=== PATIENT | female | born 1965 | race Caucasian/White ===

== ENCOUNTER 2016-08-19 11:11 | Observation (INO) | payer SELFPAY ==
[2016-08-19 11:39] LABS: Hematocrit 46.1 % (37.0-47.0); Hemoglobin 15.1 gm/dL (12.5-16.0); Mean Cell Volume 87.6 fl (78-100); Mean Corpuscular Hemoglobin 28.7 pg (27-31); Mean Corpuscular Hgb Conc 32.8 g/dl (32-36); Mean Platelet Volume 10.1 fl (6.0-9.5); Neutrophil # 6.8 K/mm3 (1.3-6.0); Neutrophil % 76.6 % (42-75.0); Platelet Count 262 K/mm3 (150-450); Red Blood Count 5.26 M/mm3 (4.2-5.4); Red Cell Distribution Width 13.2 % (11.5-14.0); White Blood Count 8.9 K/mm3 (4.0-10.5)
[2016-08-19 11:55] LABS: Prothrombin Time (Patient) 10.2 Seconds (9.4-11.4)
[2016-08-19 11:56] LABS: INR 0.98 INR (0.90-1.10); Partial Thrombolplastin Time 24.7 Seconds (24-32)
[2016-08-19 12:08] LABS: ALT 27 U/L (19-67); AST 15 U/L (0-48); Albumin * 4.1 gm/dl (3.4-5.0); Alkaline Phosphatase * 118 U/L (50-170); Anion Gap 13.3 mmol/L (6.8-13.8); BUN/Creatinine Ratio 8.8 (9.0-21.6); Bilirubin, Total 1.2 mg/dL (0.0-1.1); Blood Urea Nitrogen 12 mg/dL (3-23); Ca. Corrected For Albumin 8.8 mg/dL (8.4-10.2); Calcium * 9.2 mg/dL (7.9-10.9); Carbon Dioxide 25.6 mmol/L (24-32.6); Chloride 96 mmol/L (97-106); Potassium 3.9 mmol/L (3.4-4.6); Sodium 131 mmol/L (132-142); Total Protein 8.5 gm/dL (6.2-8.2); Troponin I Less than 0.017 ng/ml (0.00-0.10)
[2016-08-19 12:15] LABS: Glucose * 656 mg/dL (70-110)
[2016-08-19] MEDS ORDERED: NORMAL SALINE 1,000 ML IV ONE (12:19)
[2016-08-19 12:25] LABS: Urine Bilirubin Negative (NEGATIVE); Urine Blood 50 /ul (NEGATIVE); Urine Ketone Negative (NEGATIVE); Urine Nitrite Negative (NEGATIVE); Urine Protein Negative (NEGATIVE); Urine Urobilinogen Normal (NORMAL)
--- NOTE | 2016-08-19 12:32 | ERNOTE ---
Chest Pain/Cardiac HPI Date of Service: 08/19/16 Chief Complaint: Chest Pain Time Seen by Provider: 08/19/16 12:20 Source: patient Exam Limitations: no limitations Immunizations: IMMUNIZATION HX History of Influenza Vaccine No Hx Pneumococcal Vaccination No Allergies/Adverse Reactions: Allergies acetaminophen [From Vicodin] Allergy (Verified 08/19/16 11:27) hydrocodone bitartrate [From Vicodin] Allergy (Verified 08/19/16 11:27) oxycodone HCl [From Percocet] Allergy (Verified 08/19/16 11:27) Home Medications: HOME MEDICATIONS NK [No Home Medication] 08/19/16 [Last Taken Unknown] Narrative: The patient presents with chest pain that started at work at 9:30 in the morning. Roughly 3 hours ago the pain stayed in the middle of her chest for at least 2 hours. Describes it more as a tightness no radiation of pain worse with deep inspiration and she had a hard time catching her breath. Denied any diaphoresis or sweating denies being short of breath. Presently her pain is 0/10 chest pain is resolved. Patient states has been having a cough and cold for the past few days, Denies any weakness denies any swelling of the legs. No fever slightly nasally congested. Patient does state that she's been urinating frequently, increased thirst and hunger No known history of diabetes Denies any headache abdominal pain no nausea vomiting or diarrhea. Date (Duration): 08/19/16 Time (Timing): 09:30 Timing: resolved prior to arrival Severity/Quality: mild, tightness Location: central Chest Pain Radiation: no radiation Associated Symptoms: Present: cough. Absent: headache, dizziness, syncope, shortness of breath, diaphoresis, fever/chills, palpitations, heartburn, nausea , vomiting, abdominal pain, weakness, back pain, swelling/lump in chest Prior Chest Pain/Cardiac Workup: Reports: no prior cardiac workup Review of Systems - Review of Systems Constitutional: Absent: fever, chills, diaphoresis, weakness, fatigue EYE: Absent: blurred vision, double vision ENT: Absent: nose pain Respiratory: Absent: shortness of breath, cough, orthopnea, wheezing Cardiology: Present: chest pain. Absent: palpitations, syncope, edema Gastrointestinal/Abdominal: Absent: nausea, vomiting, diarrhea, constipation, abdominal pain Neurological: Absent: headache, dizziness/light-headedness, weakness, numbness All Other Systems: All systems neg except as marked - Patient's Past Medical History Patient History - Medical: No pertinent hx Patient History - Cardiac/Respiratory: No pertinent hx Patient History - Cancer: No Hx of Cancer Patient History - Surgical Procedures: Tubal Ligation, Other Patient History - Other: None - Family History Father Family History - Medical: Family History - Cardiac/Respiratory: Pneumonia - at age 56 Mother Family History - Cardiac/Respiratory: Coronary Heart Disease, CVA/Stroke - Social History Living Situations: home - Immunizations Hx Pneumococcal Vaccination: No History of Influenza Vaccine: No Physical Exam - Physical Exam General Appearance: Present: wd/wn, alert, no apparent distress Eye Exam: PERRL: bilateral, EOMI: bilateral Ears, Nose, Throat: Present: normal ENT inspection, hearing grossly normal, normal pharynx Neck: Present: normal inspection, nontender, supple, full range of motion Respiratory: Present: no respiratory distress, normal breath sounds, no accessory muscle use, chest nontender, lungs clear Cardiovascular/Chest: Present: regular rate, rhythm, no murmur, normal peripheral pulses Gastrointestinal/Abdominal: Present: normal bowel sounds, nontender, nondistended, soft, no organomegaly Extremity Exam: Present: normal inspection, non-tender, no edema, normal range of motion Neurological Exam: Present: alert, oriented, normal mood/affect, no motor/ sensory deficits Skin Exam: Present: normal color, warm/dry Lymphatic Exam: Present: no adenopathy ED Progress - Date and Time Seen: Date and Time: 08/19/16 12:37 Patient reevaluated at this time - Results and Orders Patient's Lab Results:: I have reviewed the patient's lab results. - Vital Signs Patient's Vital Signs:: I have reviewed the patient's vital signs. Vital Signs: Vital Signs 08/19/16 11:14 Temperature 35.3 C L Pulse Rate 89 Respiratory 12 Rate Blood Pressure 166/95 O2 Sat by Pulse 96 Oximetry - EKG EKG: NSR, nonspecific ST T wave changes EKG read: Interp. by me EKG Comments: Heart rate 82, nonspecific ST T-wave changes, no acute changes - X-Ray X-Ray #1 X-Ray: chest X-ray Comments: No acute changes - Progress/Reassessment Chief Complaint: Chest Pain Progress:: Improved Progress Note-Subjective: 08/19/16 17:09 Patient doing quite wall because of her new onset diabetes and her chest pain we 'll admit her observation here and get her some diabetic education get her medications adjusted and do a full chest pain rule out. We'll be admitted observation [address] Alexander admitting physician. - Transfer of Care Expected Disposition: Admit Departure - Departure Clinical Impression: Diabetes mellitus, new onset, Chest pain, rule out acute myocardial infarction Disposition: [facility] Condition: Good
[2016-08-19 12:35] LABS: Urine Color Yellow
[2016-08-19 12:36] LABS: Urine Appearance Clear; Urine Bacteria 1+; Urine RBC 0-5 /hpf (0-5); Urine WBC None Seen /hpf (0-5)
[2016-08-19 12:53] LABS: Hemoglobin A1C 10.5 % (4.00-6.0)
[2016-08-19 13:43] LABS: Venous Blood Gas HCO3 25.6 mmol/L (22.0-29.0); Venous Blood Gas pH 7.38 (7.32-7.43)
[2016-08-19] MEDS ORDERED: INSULIN REGULAR, HUMAN 100 UNITS/ML VIAL IV ONE (15:17)
[2016-08-19] MEDS ORDERED: INSULIN REGULAR, HUMAN 100 UNITS/ML VIAL ONE (15:19)
--- NOTE | 2016-08-19 20:36 | HP ---
Chief Complaint - Chief Complaint Date of Service: 08/19/16 Time of Service: 19:45 Chief Complaint: "Chest Tightness". Source of HPI- Pt reliable, ER provider report. History of Present Illness: Ms. Jo is a 51-yr-old [employer] pt who has no pertinent medical history and no PCP. Pt states that while at work this morning around 9.30am, she suddenly developed chest tightness. Her work duties do not involve any strenuous activity, but is mostly on standing position for long hours. Her brought her to the [facility] ER as the pain just lingered for about 2 hours. She denies the associated symptoms of N/V, SOB, Diaphoresis or radiation to the jaw, neck & arm. During evaluation at the ED, the chest pain subsided without any pharmacological intervention. Her hematology labwork was unremarkable. However, the chemistries showed she was hyperglycemic with a blood sugar level of 656 mg/dL. She will be admitted under observation to ensure her blood sugars are under control and for remote telemetry monitoring to rule out TN. - Patient's Past Medical History Patient History - Medical: No pertinent hx Patient History - Cardiac/Respiratory: No pertinent hx Patient History - Cancer: No Hx of Cancer Patient History - Surgical Procedures: , Tubal Ligation, Other Patient History - Other: None - Family History Father Family History - Medical: Family History - Cardiac/Respiratory: Pneumonia - at age 56 Mother Family History - Cardiac/Respiratory: Coronary Heart Disease, CVA/Stroke - Social History Living Situations: spouse Smoking Status: Former smoker Have you smoked in the past 12 months: No - Immunizations Hx Pneumococcal Vaccination: No History of Influenza Vaccine: No Review Of Systems (GEN) - Review of Systems Generalized/Overall Review: Absent: Weakness, Chills, Fever, Diaphoresis, Weight loss EENTM: Absent: Eye Pain, Blurred Vision, Double Vision, Nose Congestion Respiratory: Absent: Cough, Shortness of Breath, Orthopnea, Wheezing Cardiac: Present: Chest Pain. Absent: Edema, Palpitations Abdominal: Absent: Nausea, Vomiting, Abdominal Pain, Constipation, Diarrhea Genitourinary: Absent: Burning, Itching, Urgency Musculoskeletal: Absent: Joint Pain, Back Pain Neurological: Absent: Headache, Anxiety, Depressed, Tremors Skin: Absent: Dryness, Lesions, Lumps Endocrine: Present: Increased Thirst, Other. Absent: Intolerance to Heat, Excessive Sweating, Increased Hunger Allergies/Adverse Reactions: Allergies Allergy/AdvReac Type Severity Reaction Status Date / Time acetaminophen [From Vicodin] Allergy Verified 08/19/16 11:27 hydrocodone bitartrate Allergy Verified 08/19/16 11:27 [From Vicodin] oxycodone HCl [From Percocet] Allergy Verified 08/19/16 11:27 Home Medications: HOME MEDICATIONS NK [No Home Medication] 08/19/16 [Last Taken Unknown] Exam - Exam Vital Signs: Vital Signs - Last Taken Temp 36.7 C 08/19/16 18:39 Pulse 77 08/19/16 18:39 Resp 16 08/19/16 18:39 BP 169/83 08/19/16 18:39 Pulse Ox 95 08/19/16 18:39 Constitutional: Present: Alert, Oriented x3, No distress ENT Exam: Present: normal ENT inspection, hearing grossly normal. Absent: nasal congestion, nasal drainage Eye Exam: bilateral eye: normal inspection, PERRL Neck: Present: full range of motion, supple, normal inspection Back Exam: Present: normal inspection Respiratory: Present: lungs clear, no accessory muscle use, No wheezing Cardiovascular/Chest: Present: regular rate, rhythm, no murmur Abdomen: Present: soft, nontender, nondistended /Rectal: Present: Exam deferred Extremity: Present: non-tender, normal inspection, no pedal edema Skin Exam: Present: warm/dry, no cyanosis Lymphatic: Present: no adenopathy Neurologic: Present: no motor/sensory deficits, alert, oriented x 3, other - Flat affect Appearance: Present: appropriate appearance, appropriate insight Eye contact: Present: cooperative, good eye contact, normal speech Thoughts: Present: normal thought pattern, no apparent hallucination Diagnostic Studies: Laboratory Results WBC 8.9 K/mm3 (4.0-10.5) 08/19/16 11:34 RBC 5.26 M/mm3 (4.2-5.4) 08/19/16 11:34 Hgb 15.1 gm/dL (12.5-16.0) 08/19/16 11:34 Hct 46.1 % (37.0-47.0) 08/19/16 11:34 MCV 87.6 fl (78-100) 08/19/16 11:34 MCH 28.7 pg (27-31) 08/19/16 11:34 MCHC 32.8 g/dl (32-36) 08/19/16 11:34 RDW 13.2 % (11.5-14.0) 08/19/16 11:34 Plt Count 262 K/mm3 (150-450) 08/19/16 11:34 MPV 10.1 fl (6.0-9.5) H 08/19/16 11:34 Immature Gran % (Auto) 0.20 % (0.001-0.429) 08/19/16 11:34 Immature Gran # (Auto) 0.02 K/mm3 (0.000-0.0310) 08/19/16 11:34 Neutrophils % 76.6 % (42-75.0) H 08/19/16 11:34 Lymphocytes % 15.4 % (20-51) L 08/19/16 11:34 Monocytes % 6.2 % (0.0-9) 08/19/16 11:34 Eosinophils % 0.9 % (0.0-3.0) 08/19/16 11:34 Basophils % 0.7 % (0.0-1.0) 08/19/16 11:34 Nucleated RBC % 0.0 k/mm3 (0-1) 08/19/16 11:34 Neutrophils # 6.8 K/mm3 (1.3-6.0) H 08/19/16 11:34 Lymphocytes # 1.4 k/mm3 (1.5-3.5) L 08/19/16 11:34 Monocytes # 0.6 k/mm3 (0.0-1.0) 08/19/16 11:34 Eosinophils # 0.1 k/mm3 (0.0-0.7) 08/19/16 11:34 Absolute Basophils 0.1 k/mm3 (0.0-0.1) 08/19/16 11:34 PT 10.2 Seconds (9.4-11.4) 08/19/16 11:34 INR (Anticoag Therapy) 0.98 INR (0.90-1.10) 08/19/16 11:34 PTT ([place]) 24.7 Seconds (24-32) 08/19/16 11:34 pCO2 44.6 mmHg (32.0-45.0) 08/19/16 13:40 pO2 20.6 mmHg (23.3-35.1) L 08/19/16 13:40 HCO3 25.6 mmol/L (22.0-29.0) 08/19/16 13:40 Total CO2 26.9 mmol/L (22.0-26.0) H 08/19/16 13:40 Base Excess 0.0 mmol/L (-2.0-3.0) 08/19/16 13:40 ABG pH 7.38 (7.32-7.43) 08/19/16 13:40 VBG O2 Saturation 32.5 % (94.0-98.0) L 08/19/16 13:40 Sodium 131 mmol/L (132-142) L 08/19/16 11:34 Plasma Sodium 140 mmol/L (130-142) 08/19/16 11:34 Potassium 3.9 mmol/L (3.4-4.6) 08/19/16 11:34 Chloride 96 mmol/L (97-106) L 08/19/16 11:34 Carbon Dioxide 25.6 mmol/L (24-32.6) 08/19/16 11:34 Anion Gap 13.3 mmol/L (6.8-13.8) 08/19/16 11:34 BUN 12 mg/dL (3-23) 08/19/16 11:34 Creatinine 1.37 mg/dL (0.4-1.4) 08/19/16 11:34 Est GFR (Non-Af Amer) 44 mL/min (60-130) L 08/19/16 11:34 BUN/Creatinine Ratio 8.8 (9.0-21.6) L 08/19/16 11:34 Random Glucose 421 mg/dL (70-110) H 08/19/16 14:55 Mean Blood Glucose 264 mg/dL 08/19/16 11:34 Hemoglobin A1c 10.5 % (4.00-6.0) H 08/19/16 11:34 Calcium 9.2 mg/dL (7.9-10.9) 08/19/16 11:34 Calcium Adj for Albumin 8.8 mg/dL (8.4-10.2) 08/19/16 11:34 Total Bilirubin 1.2 mg/dL (0.0-1.1) H 08/19/16 11:34 AST 15 U/L (0-48) 08/19/16 11:34 ALT 27 U/L (19-67) 08/19/16 11:34 Alkaline Phosphatase 118 U/L (50-170) 08/19/16 11:34 Troponin I Less than 0.017 ng/ml (0.00-0.10) 08/19/16 17:48 Total Protein 8.5 gm/dL (6.2-8.2) H 08/19/16 11:34 Albumin 4.1 gm/dl (3.4-5.0) 08/19/16 11:34 Serum HCG, Qual Negative (NEGATIVE) 08/19/16 11:34 Urine Color Yellow 08/19/16 12:09 Urine Appearance Clear 08/19/16 12:09 Urine pH 6.0 pH (5.0-7.0) 08/19/16 12:09 Ur Specific [place] 1.010 SP.GR. (1.005-1.010) 08/19/16 12:09 Urine Protein Negative mg/dL (NEGATIVE) 08/19/16 12:09 Urine Glucose (UA) >=1000 mg/dL (NEGATIVE) H 08/19/16 12:09 Urine Ketones Negative mg/dL (NEGATIVE) 08/19/16 12:09 Urine Blood 50 /ul (NEGATIVE) H 08/19/16 12:09 Urine Nitrate Negative (NEGATIVE) 08/19/16 12:09 Urine Bilirubin Negative mg/dl (NEGATIVE) 08/19/16 12:09 Urine Urobilinogen Normal EU/dl (NORMAL) 08/19/16 12:09 Ur Leukocyte Esterase Negative /ul (NEGATIVE) 08/19/16 12:09 Urine RBC 0-5 /hpf (0-5) 08/19/16 12:09 Urine WBC None seen /hpf (0-5) 08/19/16 12:09 Ur Epithelial Cells Trace /hpf (0-5) 08/19/16 12:09 Urine Bacteria 1+ (NONE) H 08/19/16 12:09 Urine Culture Comments No culture indicated 08/19/16 12:09 Serum Ketones Negative (NEGATIVE) 08/19/16 11:34 Assessment/Plan - Assessment/Plan (1) Hyperglycemia due to type 2 diabetes mellitus Assessment: Ms Jo was noted to have a serum glucose level of 656mg/dL on admission. She received treatment at the ED which lowered it to 400s. Was started on the high dose SSI for correction. The only associated symptom she reported was polydipsia. She has never been screened before for DM and lack of having her own PCP could have made it harder to detect through routine screening. Will check HgA1C in am and provide diabetes management education. Will hold off starting her on glucose lowering medications until the HgA1c does not show improvement with lifestyle modifications. Encourage physician follow-up at Discharge. Problem: Acute (2) Diabetes mellitus, new onset Assessment: Consult Dietaty for diabetes management education. Problem: Acute (3) Chest pain, rule out acute myocardial infarction Assessment: The first Troponin and EKG was negative for ACS/TN. Will monitor serial troponins and repeat EKG. Problem: Acute (4) Encounter for diabetes education Problem: Acute
[2016-08-19] MEDS: INSULIN LISPRO 100 UNITS/ML VIAL SC SCH (21:10)
[2016-08-20 06:10] LABS: Hemoglobin A1C 11.1 % (4.00-6.0)
[2016-08-20 06:14] LABS: Chol/HDL Risk Ratio 4.3 mg/dL (3.3-4.4)
[2016-08-20] MEDS: INSULIN LISPRO 100 UNITS/ML VIAL SC SCH ×2 (07:55→12:06)
[2016-08-20 10:25] VITALS: BP 118/41
--- NOTE | 2016-08-20 10:29 | DS ---
(1) Chest pain, rule out acute myocardial infarction Problem: Resolved (2) Diabetes mellitus, new onset Problem: Acute (3) Encounter for diabetes education Problem: Acute (4) Hyperglycemia due to type 2 diabetes mellitus Problem: Acute Description of Stay: ADMISSION DATE: 08.19.2016 DISCHARGE DATE: 08.20.2016 ADMISSION HPI: Ms. Jo is a 51-yr-old [employer] pt who has no pertinent medical history and no PCP. Pt states that while at work this morning around 9.30am, she suddenly developed chest tightness. Her work duties do not involve any strenuous activity, but is mostly on standing position for long hours. Her brought her to the [facility] ER as the pain just lingered for about 2 hours. She denies the associated symptoms of N/V, SOB, Diaphoresis or radiation to the jaw, neck & arm. During evaluation at the ED, the chest pain subsided without any pharmacological intervention. Her hematology labwork was unremarkable. However, the chemistries showed she was hyperglycemic with a blood sugar level of 656 mg/dL. She will be admitted under observation to ensure her blood sugars are under control and for remote telemetry monitoring to rule out VT. PROBLEM BASED HOSPITAL COURSE: Chest Pain -EKG and cardiac enzymes unremarkable -Chest pain resolved without further incident -Most likely GI related vs. musculoskeletal Newly Diagnosed Type 2 DM -Patient received diabetic education prior to discharge -2 new oral medications started as below FOLLOW-UP APPOINTMENTS: PCP within 1-2 weeks NEW OR CHANGED MEDICATIONS: Glimepiride 4mg PO BID with meals Metformin 1000mg PO BID with meals DISCONTINUED MEDICATIONS: None Procedures Performed: none Results and Findings: Laboratory Tests 08/19/16 08/19/16 08/19/16 11:34 11:34 11:34 Sodium 131 L Plasma Sodium 140 Potassium 3.9 Chloride 96 L Carbon Dioxide 25.6 Anion Gap 13.3 BUN 12 Creatinine 1.37 Mean Blood Glucose Hemoglobin A1c Insulin Level Calcium 9.2 Calcium Adj for Albumin 8.8 Total Bilirubin 1.2 H AST 15 ALT 27 Alkaline Phosphatase 118 Troponin I Less than 0.017 Total Protein 8.5 H Albumin 4.1 Triglycerides Cholesterol LDL Cholesterol VLDL Cholesterol HDL Cholesterol Cholesterol/HDL Ratio Serum HCG, Qual Negative Urine Color Urine Appearance Urine pH Ur Specific [place] Urine Protein Urine Glucose (UA) Urine Ketones Urine Blood Urine Nitrate Urine Bilirubin Urine Urobilinogen Ur Leukocyte Esterase Urine RBC Urine WBC Ur Epithelial Cells Urine Bacteria Urine Culture Comments Serum Ketones Negative 08/19/16 08/19/16 08/19/16 11:34 12:09 17:48 Sodium Plasma Sodium Potassium Chloride Carbon Dioxide Anion Gap BUN Creatinine Mean Blood Glucose 264 Hemoglobin A1c 10.5 H Insulin Level Calcium Calcium Adj for Albumin Total Bilirubin AST ALT Alkaline Phosphatase Troponin I Less than 0.017 Total Protein Albumin Triglycerides Cholesterol LDL Cholesterol VLDL Cholesterol HDL Cholesterol Cholesterol/HDL Ratio Serum HCG, Qual Urine Color Yellow Urine Appearance Clear Urine pH 6.0 Ur Specific [place] 1.010 Urine Protein Negative Urine Glucose (UA) >=1000 H Urine Ketones Negative Urine Blood 50 H Urine Nitrate Negative Urine Bilirubin Negative Urine Urobilinogen Normal Ur Leukocyte Esterase Negative Urine RBC 0-5 Urine WBC None seen Ur Epithelial Cells Trace Urine Bacteria 1+ H Urine Culture Comments No culture indicated Serum Ketones 08/19/16 08/20/16 08/20/16 17:48 00:35 05:15 Sodium Plasma Sodium Potassium Chloride Carbon Dioxide Anion Gap BUN Creatinine Mean Blood Glucose 284 Hemoglobin A1c 11.1 H Insulin Level 2.5 Calcium Calcium Adj for Albumin Total Bilirubin AST ALT Alkaline Phosphatase Troponin I Less than 0.017 Total Protein Albumin Triglycerides Cholesterol LDL Cholesterol VLDL Cholesterol HDL Cholesterol Cholesterol/HDL Ratio Serum HCG, Qual Urine Color Urine Appearance Urine pH Ur Specific [place] Urine Protein Urine Glucose (UA) Urine Ketones Urine Blood Urine Nitrate Urine Bilirubin Urine Urobilinogen Ur Leukocyte Esterase Urine RBC Urine WBC Ur Epithelial Cells Urine Bacteria Urine Culture Comments Serum Ketones 08/20/16 05:15 Sodium Plasma Sodium Potassium Chloride Carbon Dioxide Anion Gap BUN Creatinine Mean Blood Glucose Hemoglobin A1c Insulin Level Calcium Calcium Adj for Albumin Total Bilirubin AST ALT Alkaline Phosphatase Troponin I Total Protein Albumin Triglycerides 123 Cholesterol 168 LDL Cholesterol 104 VLDL Cholesterol 25 HDL Cholesterol 39 L Cholesterol/HDL Ratio 4.3 Serum HCG, Qual Urine Color Urine Appearance Urine pH Ur Specific [place] Urine Protein Urine Glucose (UA) Urine Ketones Urine Blood Urine Nitrate Urine Bilirubin Urine Urobilinogen Ur Leukocyte Esterase Urine RBC Urine WBC Ur Epithelial Cells Urine Bacteria Urine Culture Comments Serum Ketones Discharge Disposition: Home self care Disposition: Home self-care Condition: Stable Discharge Activity: Activity as tolerated Discharge Diet: Consistent carbs Problem Oriented Discharge Instructions to Patient/Family: Hyperglycemia, Easy- to-Read, Type 2 Diabetes Mellitus, Adult, [id number] Additional Patient Instructions (free text): Follow up with Dr. Alexander on August at 2:30 pm.Be at the office at 2 pm for registration. Please have assistant health educator meet with patient prior to discharge. Please make arrangements for patient to get diabetic testing supplies at discharge. Thanks. Check blood sugars TID (Three times per day). Prescriptions (Any new or edited meds): Glimepiride 4 mg PO BIDWM #60 tablet metFORMIN HCL [Glucophage] 1,000 mg PO BIDWM #60 tablet Complete Home Medications List: Complete Home Medication List: Glimepiride 4 mg PO BIDWM #60 tablet 08/20/16 metFORMIN HCL [Glucophage] 1,000 mg PO BIDWM #60 tablet 08/20/16
== END 2016-08-20 14:10 | disposition home or self-care (01) ==
LOC: ER 11:11 → MS 17:14
PROVIDERS: ADMIT Internal Medicine; ATTEND Internal Medicine
DX: E11.65 Type 2 diabetes mellitus with hyperglycemia (principal); R07.9 Chest pain, unspecified
CPT/HCPCS: 36415; 36416; 71020; 80053; 80061; 81001; 82009; 82803; 82947; 83036; 83525; 84484; 84703; 85025; 85610; 85730; 93005; 96374; 99284; G0378